=== PATIENT | female | born 1970 | race Caucasian/White ===

== ENCOUNTER 2023-01-26 12:51 | Outpatient (CLI) | payer OTHER, SELFPAY | END 2023-01-26 12:52 | disposition home or self-care (01) | LOC: FRMREF 12:52 | PROVIDERS: PCP Physician Assistant Medical; Visit Provider Physician Assistant Medical | DX: N39.0 Urinary tract infection, site not specified (principal) | CPT/HCPCS: 87086; 87186 ==

== ENCOUNTER 2024-12-24 14:12 | Outpatient (CLI) | payer OTHER, SELFPAY | END 2024-12-24 14:13 | disposition home or self-care (01) | LOC: NFLDREF 12-26 15:07 | PROVIDERS: PCP Physician Assistant Medical; Referring Provider Physician Assistant Medical; Visit Provider Physician Assistant Medical | DX: N20.0 Calculus of kidney (principal); N30.00 Acute cystitis without hematuria | CPT/HCPCS: 87086 ==

== ENCOUNTER 2024-12-25 13:40 | Outpatient (CLI) | payer OTHER, SELFPAY ==
--- NOTE | 2024-12-25 14:00 | CRLHL7_ITS ---
For Patients: As a result of the Cures Act, medical imaging exams and procedure reports are released immediately into your electronic medical record. You may view this report before your referring provider. If you have questions, please contact your health care provider. BILATERAL DIGITAL SCREENING MAMMOGRAM WITH COMPUTER-AIDED DETECTION AND TOMOSYNTHESIS CLINICAL HISTORY: Routine screening exam. COMPARISON: Mammogram 03/13/2018 and 05/25/2015. TECHNIQUE: Digital mammogram in CC and MLO projections including computer-aided detection (CAD) and tomosynthesis. BREAST COMPOSITION: There are scattered areas of fibroglandular density. FINDINGS: RIGHT Breast: No suspicious findings. LEFT Breast: There is a focal asymmetry in the LEFT breast at approximately 3 o`clock, anterior depth. IMPRESSION: LEFT breast focal asymmetry. RECOMMENDATIONS: Additional mammographic views of the LEFT breast including 90-degree lateral, spot compression CC and MLO. LEFT breast ultrasound may also be required. [facility] will contact the patient for follow-up. BI-RADS Category 0: Incomplete: Need Additional Imaging Evaluation A lay language report of this examination will be provided to the patient. Dictated by Kinjal Cates MD @ 12/27/2024 7:52:00 AM /sp SP/Dictated by: Kinjal Cates MD @ 12/27/2024 7:52:00 AM (Electronically Signed)
== END 2024-12-25 13:41 | disposition home or self-care (01) ==
LOC: MAMMO 13:40
PROVIDERS: PCP Physician Assistant Medical; Visit Provider Physician Assistant Medical
DX: Z12.31 Encounter for screening mammogram for malignant neoplasm of breast (principal); N63.20 Unspecified lump in the left breast, unspecified quadrant
CPT/HCPCS: 77063; 77067

== ENCOUNTER 2024-12-31 15:38 | Outpatient (CLI) | payer OTHER, SELFPAY ==
--- NOTE | 2024-12-31 16:00 | CRLHL7_ITS ---
For Patients: As a result of the Century Cures Act, medical imaging exams and procedure reports are released immediately into your electronic medical record. You may view this report before your referring provider. If you have questions, please contact your health care provider. Indication: History of kidney stones Technique: Noncontrast CT abdomen and pelvis Please note that all CT scans at this facility use dose modulation, iterative reconstruction, and/or weight-based dosing when appropriate to reduce radiation dose to as low as reasonably achievable. Comparison: 08/28/2019 Findings: Lung bases are clear. Postop changes to the stomach. Noncontrast enhanced liver appears normal. Gallbladder partially distended. No calcified stones. Spleen within normal limits. No adrenal nodule. No renal calculi. No bladder stone. Pelvic phleboliths again noted. No ureteral stone. Pancreas normal. No adenopathy. Left ovarian cyst measures 3.7 cm. Migration of the left tubal ligation clip. Uterus is enlarged may be secondary to central fibroid. Disc space narrowing L4-5 and L5-S1 with vacuum disc phenomenon. Degenerative spurring at both hips. No bowel obstruction or free air. No free fluid or abscess. No diverticulitis. Normal appendix. No incisional hernia. Impression: No renal, ureteral or bladder calculi. Enlarged uterus, probable fibroid. Left ovarian cyst. Pelvic ultrasound recommended for further evaluation. Migration of the left tubal ligation clip, consider alternative methods of contraception. Please note that all CT scans at this facility use dose modulation, iterative reconstruction, and/or weight-based dosing when appropriate to reduce radiation dose to as low as reasonably achievable. Dictated by Nick Hand MD @ 01/01/2025 8:24:09 AM (Electronically Signed)
== END 2024-12-31 15:39 | disposition home or self-care (01) ==
LOC: CT 15:38
PROVIDERS: PCP Physician Assistant Medical; Visit Provider Physician Assistant Medical
DX: Z87.442 Personal history of urinary calculi (principal); N85.2 Hypertrophy of uterus; N39.0 Urinary tract infection, site not specified
CPT/HCPCS: 74176

== ENCOUNTER 2025-02-04 09:18 | Outpatient (CLI) | payer OTHER, SELFPAY ==
--- NOTE | 2025-02-04 09:45 | CRLHL7_ITS ---
For Patients: As a result of the Cures Act, medical imaging exams and procedure reports are released immediately into your electronic medical record. You may view this report before your referring provider. If you have questions, please contact your health care provider. DIGITAL DIAGNOSTIC LEFT MAMMOGRAM USING TOMOSYNTHESIS LEFT BREAST ULTRASOUND INDICATION: Follow-up a LEFT breast asymmetry described on a recent screening mammogram 12/25/2024. MAMMOGRAM: TECHNIQUE: Unilateral diagnostic LEFT breast mammogram. Spot compression views were obtained in the CC and MLO projection. A true ML view of the LEFT breast was performed. Digital breast tomosynthesis used in interpretation. COMPARISON: 12/25/2024. 03/13/2018. FINDINGS: Breast Composition: There are areas of scattered fibroglandular density on the LEFT. Persistent oval-shaped lesion within the lateral LEFT breast 3 o`clock position, anterior depth within 1-2 cm of the nipple. This is relatively superficially located. Ultrasound is recommended and will be performed subsequently. Please see ultrasound from the same date. IMPRESSION: Persistent oval-shaped nodule measuring up to 1.3 cm at the 3 o`clock position LEFT breast near the nipple-areolar complex. ULTRASOUND: TECHNIQUE: Directed LEFT breast ultrasound within this radiologist present. At the 3 o`clock position in the retroareolar LEFT breast is an oval-shaped septated cyst measuring 1.3 x 0.4 x 1.0 cm. This has a slender echogenic septation centrally. This could reflect a septated cyst or two adjacent cysts. Regardless, there is no blood flow within this. Cyst aspiration could be performed only if the patient desires this. The patient does not feel this lesion. Therefore, annual mammography is recommended. IMPRESSION: Septated cyst 3 o`clock position LEFT retroareolar breast. Annual mammography recommended. Results and recommendations were discussed with the patient at the time of the exam. BI-RADS Category 2: Benign Dictated by: Nahun Fuentes MD @02/04/2025 11:03:25 AM j/Dictated by: Nahun Fuentes MD @ 02/04/2025 11:03:00 AM (Electronically Signed)
--- NOTE | 2025-02-04 10:15 | CRLHL7_ITS ---
For Patients: As a result of the Cures Act, medical imaging exams and procedure reports are released immediately into your electronic medical record. You may view this report before your referring provider. If you have questions, please contact your health care provider. SEE DIGITAL DIAGNOSTIC LEFT MAMMOGRAM PERFORMED SAME DAY CRL:lory henley/Dictated by: Nahun Fuentes MD @ 02/04/2025 11:03:00 AM (Electronically Signed)
--- NOTE | 2025-02-04 11:15 | CRLHL7_ITS ---
For Patients: As a result of the Century Cures Act, medical imaging exams and procedure reports are released immediately into your electronic medical record. You may view this report before your referring provider. If you have questions, please contact your health care provider. INDICATION: HYPERTROPHY OF UTERUS COMPARISON: CT 12/31/2024, ultrasound 04/14/2021 TECHNIQUE: 2D jin-scale and color Doppler images were acquired of the pelvis using a transabdominal and transvaginal approach. Transvaginal imaging performed to better visualize the endometrial stripe and ovaries. FINDINGS: Uterus measures 10.8 cm in length by 7.0 cm in AP diameter by 8.0 cm in transverse dimension. The myometrium has a normal uniform echotexture. Complex hypoechoic fluid distention of the endometrial canal noted, measuring up to 3.8 cm. The right ovary measures 3.0 x 1.8 x 1.7 cm in size and the left ovary measures 3.5 x 1.7 x 1.7 cm. The ovaries demonstrate normal arterial and venous blood flow on color Doppler analysis. There are no suspicious fluid collections within the cul-de-sac. Small left ovarian cyst measures 1.6 cm. IMPRESSION: Complex hypoechoic fluid distending the endometrial canal measuring up to 3.8 cm. Direct visualization recommended or MRI for further evaluation. Dictated by Nick Hand MD @ 02/05/2025 6:05:26 PM (Electronically Signed)
== END 2025-02-04 09:19 | disposition home or self-care (01) ==
LOC: MAMMO 09:19
PROVIDERS: PCP Physician Assistant Medical; Visit Provider Physician Assistant Medical
DX: N63.20 Unspecified lump in the left breast, unspecified quadrant (principal); R92.8 Other abnormal and inconclusive findings on diagnostic imaging of breast; N85.2 Hypertrophy of uterus; N83.201 Unspecified ovarian cyst, right side
CPT/HCPCS: 76642; 76830; 76856; 77065; G0279